=== PATIENT | female | born 1955 | race Caucasian/White ===

== ENCOUNTER 2024-10-03 14:08 | Inpatient (IN) | payer MEDICARE, OTHER ==
[~2024-10-03] VITALS: Ht 152.4 cm; Wt 69.5 kg
[~2024-10-03 14:08] MED LIST: Aspirin325 MG PO; COLCHICINE0.6 MG PO; PANT40 PO
[2024-10-03 18:02] LABS: BASOPHILS PERCENT AUTO 1 % (0-2); EOSINOPHILS ABSOLUTE AUTO 0.04 K/mm3 (0.00-0.68); EOSINOPHILS PERCENT AUTO 0 % (0-6); Hematocrit 40.6 % (33.0-51.0); Hemoglobin 13.1 g/dL (11.5-16.0); IMMATURE GRAN ABSOLUTE AUTO 0.17 K/mm3 (0.00-0.10); IMMATURE GRAN PERCENT AUTO 1 % (0-1); LYMPHOCYTES ABSOLUTE AUTO 1.44 K/mm3 (0.84-5.20); LYMPHOCYTES PERCENT AUTO 7 % (21-46); MONOCYTES ABSOLUTE AUTO 2.09 K/mm3 (0.16-1.47); MONOCYTES PERCENT AUTO 11 % (4-13); Mean Corpuscular HGB 32.9 pg (26.0-34.0); Mean Corpuscular HGB Conc 32.3 g/dL (31.5-36.5); Mean Corpuscular Volume 102 fL (80-100); Mean Platelet Volume 10.3 fL (9.1-12.4); NEUTROPHILS ABSOLUTE AUTO 15.59 K/mm3 (1.96-9.15); NEUTROPHILS PERCENT AUTO 80 % (41-73); RDW Coefficient Variation 15.3 % (11.7-14.2); RDW Standard Deviation 57.5 fL (35.1-46.3); Red Blood Cell Count 3.98 M/mm3 (3.80-5.20); White Blood Cell Count 19.43 K/mm3 (4.00-11.30)
[2024-10-03 18:05] LABS: Platelet Count 1035 K/mm3 (150-400)
[2024-10-03 18:32] LABS: Albumin, Blood 3.1 g/dL (3.4-5.0); Albumin/Globulin Ratio 0.8 (0.8-1.8); Bilirubin, Total 0.6 mg/dL (0.1-1.0); Bun/Creatinine Ratio 27.9 (12.0-20.0); Calcium, Blood 9.5 mg/dL (8.5-10.1); Creatinine, Blood 0.54 mg/dL (0.40-1.00); Total Protein, Blood 7.1 g/dL (6.4-8.2)
[2024-10-03] MEDS ORDERED: FLU VACC TS2024-25(6MOS UP)/PF 45 MCG/0.5 ML SYRINGE IM ONE (22:55)
[2024-10-03] MEDS ORDERED: Ketorolac Tromethamine 30mg Vial IV PRN (22:55)
[2024-10-03] MEDS ORDERED: Ondansetron HCl 2 MG / ML 2ML Vial IV PRN (23:00)
[2024-10-03] MEDS ORDERED: FentaNYL Citrate 50 MCG/ML 2 ML Injection IV PRN (23:00)
[2024-10-03] MEDS ORDERED: Colchicine 0.6 MG TAB PO ONE (23:00)
[2024-10-04] VITALS (12 sets, daily range): BP systolic 109–135; BP diastolic 71–91
--- NOTE | 2024-10-04 01:44 | NUR ---
ASSUMED CARE PT A&O X4; SPO2 >92% ON RA; MAP >65; 118/74 @ 0142. PT STATES CP IS A 4-5/10. AND HAS GOTTEN SLIGHTLY WORSE WHILE SHE WAS IN ER AND HAS BEEN CONSTANT SINCE. ER NOTES STATED THAT PT DENIED CP AT ONE POINT SO CALL WAS MADE TO RESIDENT WHO ORDERED EKG AND CAME TO BEDSIDE. WHEN WAKING PT, PT STATED THAT CP WENT AWAY PT WAS ABOUT TO FALL ASLEEP AND THAT THE CP IN THE ER WAS NOT CONSTANT AND WAS GONE AT ONE POINT. EKG REMAINS UNCHANGED FROM ER EKG PER DR PRASAD, NO FURTHER ORDERS AT THIS TIME. VSS AT THIS TIME, EXCEPT FOR ST @ 110'S.
[2024-10-04 03:10] LABS: Influenza A, PCR NEGATIVE (NEGATIVE); Influenza B, PCR NEGATIVE (NEGATIVE); Resp Syncytial Virus, PCR NEGATIVE (NEGATIVE); SARS-Cov-2 (COVID-19) PCR, MMC NEGATIVE (NEGATIVE)
[2024-10-04 04:34] LABS: BASOPHILS ABSOLUTE AUTO 0.07 K/mm3 (0.00-0.23); BASOPHILS PERCENT AUTO 0 % (0-2); EOSINOPHILS ABSOLUTE AUTO 0.03 K/mm3 (0.00-0.68); EOSINOPHILS PERCENT AUTO 0 % (0-6); Hematocrit 37.6 % (33.0-51.0); Hemoglobin 12.2 g/dL (11.5-16.0); IMMATURE GRAN ABSOLUTE AUTO 0.16 K/mm3 (0.00-0.10); IMMATURE GRAN PERCENT AUTO 1 % (0-1); LYMPHOCYTES ABSOLUTE AUTO 1.06 K/mm3 (0.84-5.20); LYMPHOCYTES PERCENT AUTO 6 % (21-46); MONOCYTES ABSOLUTE AUTO 1.73 K/mm3 (0.16-1.47); MONOCYTES PERCENT AUTO 11 % (4-13); Mean Corpuscular HGB 32.3 pg (26.0-34.0); Mean Corpuscular HGB Conc 32.4 g/dL (31.5-36.5); Mean Corpuscular Volume 100 fL (80-100); Mean Platelet Volume 10.1 fL (9.1-12.4); NEUTROPHILS ABSOLUTE AUTO 13.43 K/mm3 (1.96-9.15); NEUTROPHILS PERCENT AUTO 82 % (41-73); Platelet Count 948 K/mm3 (150-400); RDW Coefficient Variation 15.2 % (11.7-14.2); RDW Standard Deviation 55.8 fL (35.1-46.3); Red Blood Cell Count 3.78 M/mm3 (3.80-5.20); White Blood Cell Count 16.48 K/mm3 (4.00-11.30)
[2024-10-04 05:07] LABS: Albumin, Blood 2.8 g/dL (3.4-5.0); Albumin/Globulin Ratio 0.8 (0.8-1.8); Bilirubin, Total 0.6 mg/dL (0.1-1.0); Bun/Creatinine Ratio 24.6 (12.0-20.0); C-REACTIVE PROTEIN, EXT RANGE 15.3 mg/dL (0.000-0.300); Calcium, Blood 8.8 mg/dL (8.5-10.1); Creatinine, Blood 0.57 mg/dL (0.40-1.00); Globulin, Blood 3.5 g/dL (2.2-4.0); Potassium, Blood 4.1 mmol/L (3.5-5.5); Total Protein, Blood 6.3 g/dL (6.4-8.2)
--- NOTE | 2024-10-04 06:09 | NUR ---
SHIFT SUMMARY PT RESTED QUIETLY/SLEPT T/O NIGHT. AM CHECK W/ LABS AND MORNING VITALS PT STATED, "I THINK IT'S BETTER" WHEN ASKED ABOUT CP. DR BUSH AT BEDSIDE THIS AM W/ NO NEW ORDERS. VSS AT THIS TIME. NO ACUTE EVENTS.
[2024-10-04] MEDS ORDERED: Pantoprazole Sodium 40 MG Tab PO SCH (09:00)
[2024-10-04] MEDS ORDERED: Colchicine 0.6 MG TAB PO SCH (09:00)
[2024-10-04] MEDS ORDERED: Acetaminophen 325 MG TABLET PO SCH (10:55)
--- NOTE | 2024-10-04 17:24 | NUR ---
No significant changes today in her work of breathing, vital signs, or pain level (mild). She has tolerated minimal activity. Sinus tachycardia, 13-114 bpm.
[2024-10-05 03:49] LABS: BASOPHILS ABSOLUTE AUTO 0.13 K/mm3 (0.00-0.23); BASOPHILS PERCENT AUTO 1 % (0-2); EOSINOPHILS ABSOLUTE AUTO 0.44 K/mm3 (0.00-0.68); EOSINOPHILS PERCENT AUTO 3 % (0-6); Hematocrit 38.3 % (33.0-51.0); Hemoglobin 12.5 g/dL (11.5-16.0); IMMATURE GRAN PERCENT AUTO 1 % (0-1); LYMPHOCYTES ABSOLUTE AUTO 1.02 K/mm3 (0.84-5.20); LYMPHOCYTES PERCENT AUTO 6 % (21-46); MONOCYTES ABSOLUTE AUTO 1.65 K/mm3 (0.16-1.47); MONOCYTES PERCENT AUTO 10 % (4-13); Mean Corpuscular HGB 32.2 pg (26.0-34.0); Mean Corpuscular HGB Conc 32.6 g/dL (31.5-36.5); Mean Corpuscular Volume 99 fL (80-100); Mean Platelet Volume 10.1 fL (9.1-12.4); NEUTROPHILS ABSOLUTE AUTO 13.11 K/mm3 (1.96-9.15); NEUTROPHILS PERCENT AUTO 80 % (41-73); Platelet Count 993 K/mm3 (150-400); RDW Coefficient Variation 15.3 % (11.7-14.2); RDW Standard Deviation 55.3 fL (35.1-46.3); Red Blood Cell Count 3.88 M/mm3 (3.80-5.20); White Blood Cell Count 16.45 K/mm3 (4.00-11.30)
[2024-10-05 04:22] LABS: Bun/Creatinine Ratio 32.6 (12.0-20.0); Creatinine, Blood 0.61 mg/dL (0.40-1.00); Potassium, Blood 3.9 mmol/L (3.5-5.5)
[2024-10-05 04:46] VITALS: BP 119/76
--- NOTE | 2024-10-05 06:16 | NUR ---
SHIFT SUMMARY NEURO: WNL CARDIAC:SINUS TACH, NO RUB HEARD LUNGS: C/O SOB. ON RA GI/: PT REPORTS LOOSE STOOL
[2024-10-05 07:30] VITALS: BP 98/74
[2024-10-05 07:31] VITALS: BP 124/76
--- NOTE | 2024-10-05 09:40 | NUR ---
AM NOTE: THIS RN ASSUMED CARE OF PT AT APPROX 0700. PT A/OX4, ABLE TO CALL APPROPRIATELY & COMMUNICATE NEEDS W/ STAFF. HR 100'S, SINUS TACH ON TELE. BP STABLE, MAP >65. PT DENIES CHEST PAIN/PRESSURE. ENDORSES SOB, PARTICULARLY W/ ANY EXERTION. SPO2 >90% ON ROOM AIR. PT DENIES PAIN THIS MORNING. TOLERATING PO FLUIDS, DECLINED BREAKFAST. REPOSITIONING SELF IN BED INDEPENDENTLY. NO OTHER NEEDS AT THIS TIME, CALL LIGHT IN REACH.
[2024-10-05 11:22] VITALS: BP 121/79
--- NOTE | 2024-10-05 14:02 | NUR ---
DISCHARGE NOTE: PT DISCHARGED HOME AT APPROX 1355. WHEELED OUT TO PRIVATE VEHICLE BY STAFF W/ ALL BELONGINGS. VSS AT TIME OF D/C, NO ACUTE DISTRESS NOTED. DISCHARGE INSTRUCTIONS REVIEWED BY PADMINI GUTIÉRREZ.
[2024-10-05 21:46] LABS: DOUBLE-STRANDED DNA IGG ELISA 3 IU (0-24)
[2024-10-06 02:47] LABS: ANTI-NUCLEAR AB ANA,IGG ELISA None Detected (None Detected)
[2024-10-06 04:27] LABS: CYCLIC CITRULLINATED PEP,IGG/A 8 Units (0-19)
[2024-10-09 15:23] LABS: QNT BCR-ABL1, MAJOR (P210),RES Not Detected; QNT BCR-ABL1, MAJOR (P210),SRC Whole Blood
== END 2024-10-05 14:21 | disposition home or self-care (01) | DRG 315 ==
LOC: ER 14:08 → ERHOLD 22:55 → PCU 22:55
PROVIDERS: Internal Medicine Hematology & Oncology; Physician Assistant; Student in an Organized Health Care Education/Training Program; ADMIT Internal Medicine
PROC: 0W9D3ZZ Drainage of Pericardial Cavity, Percutaneous Approach (ICD-10-PCS; principal; 2024-10-03)
DX: I31.39 Other pericardial effusion (noninflammatory) (principal); J90 Pleural effusion, not elsewhere classified; J98.11 Atelectasis; Z79.82 Long term (current) use of aspirin; Z79.899 Other long term (current) drug therapy; D75.839 Thrombocytosis, unspecified; K21.9 Gastro-esophageal reflux disease without esophagitis; Z28.21 Immunization not carried out because of patient refusal
CPT/HCPCS: 0241U; 36415; 71046; 71260; 80048; 80053; 81206; 82728; 83615; 83880; 84145; 84484; 85025; 85651; 86038; 86140; 86200; 86225; 86430; 93005; 93010; 93308; 93321; 99285-25; A9270; J1885; Q9967